=== PATIENT | female | born 1980 | race Hispanic/Latino ===

== ENCOUNTER 2016-12-17 21:47 | Emergency (ER) | payer BC ==
[2016-12-17 22:08] VITALS: BMI 25.8
--- NOTE | 2016-12-17 22:26 | ED PDOC ---
Arrival/HPI - General Chief Complaint: Abdominal Pain Time Seen by Provider: 12/17/16 22:12 Historian: Patient - History of Present Illness Narrative History of Present Illness (Text): 12/17/16 22:25 Letha Becker is a 36 year old female who presents to the Emergency department complaining of dizziness. Patient states tonight she began experiencing dizziness with head movement, described as room-spinning, and associated nausea. Patient states she has experienced similar symptoms in the past. Patient denies any headache, vision changes, focal neurological deficits, fever , chills, chest pain, shortness of breath, vomiting, diarrhea, urinary symptoms , back pain, or any other complaints. Time/Duration: Other (today) Symptom Onset: Gradual Symptom Course: Unchanged Activities at Onset: Rest, Light Context: Home Past Medical History - Provider Review Nursing Documentation Reviewed: Yes - Psychiatric Hx Substance Use: No - Anesthesia Hx Anesthesia: No Hx Anesthesia Reactions: No Family/Social History - Physician Review Nursing Documentation Reviewed: Yes Family/Social History: No Known Family HX Smoking Status: Never Smoked Hx Alcohol Use: No Hx Substance Use: No Allergies/Home Meds Allergies/Adverse Reactions: Allergies No Known Allergies Allergy (Verified 12/17/16 22:08) Review of Systems - Physician Review All systems were reviewed & negative as marked: Yes - Review of Systems Constitutional: Normal. absent: Fevers Eyes: Normal ENT: Normal Respiratory: Normal. absent: SOB, Cough Cardiovascular: Normal. absent: Chest Pain Gastrointestinal: Nausea. absent: Abdominal Pain, Diarrhea, Vomiting Genitourinary Female: Normal. absent: Dysuria, Frequency, Hematuria, Urine Output Changes Musculoskeletal: Normal. absent: Back Pain, Neck Pain Skin: Normal. absent: Rash Neurological: Dizziness. absent: Headache Endocrine: Normal Hemo/Lymphatic: Normal Psychiatric: Normal Physical Exam Vital Signs Reviewed: Yes Vital Signs Temp Pulse Resp BP Pulse Ox 12/18/16 02:09 97.8 F 60 16 109/55 L 100 12/18/16 00:10 62 16 100/58 L 100 12/17/16 22:13 97.9 F 62 16 101/69 99 Temperature: Afebrile Blood Pressure: Normal Pulse: Regular Respiratory Rate: Normal Appearance: Positive for: Well-Appearing, Non-Toxic, Comfortable Pain Distress: None Mental Status: Positive for: Alert and Oriented X 3 - Systems Exam Head: Present: Atraumatic, Normocephalic Pupils: Present: PERRL Extroacular Muscles: Present: EOMI Conjunctiva: Present: Normal Ears: Present: Normal, NORMAL TM, Normal Canal. No: Erythema, TM Bulging, Fluid , TM Perf Mouth: Present: Moist Mucous Membranes Pharnyx: Present: Normal. No: ERYTHEMA, EXUDATE, TONSILS ENLARGED, Peritonsilar Swelling, Uvular Deviation, Muffled/Hoarse Voice, Strider, Soft Palate/Uvular Edema Nose (External): Present: Atraumatic Nose (Internal): Present: Normal Inspection Neck: Present: Normal Range of Motion. No: Meningeal Signs, MIDLINE TENDERNESS , Paraspinal Tenderness Respiratory/Chest: Present: Clear to Auscultation, Good Air Exchange. No: Respiratory Distress, Accessory Muscle Use Cardiovascular: Present: Regular Rate and Rhythm, Normal S1, S2. No: Murmurs Abdomen: Present: Normal Bowel Sounds. No: Tenderness, Distention, Peritoneal Signs Back: Present: Normal Inspection. No: CVA Tenderness, Midline Tenderness, Paraspinal Tenderness Upper Extremity: Present: Normal Inspection. No: Cyanosis, Edema Lower Extremity: Present: Normal Inspection. No: Edema Neurological: Present: GCS=15, CN II-XII Intact, Speech Normal, Motor Func Grossly Intact, Normal Sensory Function, Normal Cerebellar Funct Skin: Present: Warm, Dry, Normal Color. No: Rashes Psychiatric: Present: Alert, Oriented x 3, Normal Insight, Normal Concentration Medical Decision Making ED Course and Treatment: 12/17/16 22:25 Impression: 36 year old female complaining of dizziness and nausea. Plan: -- CT Head w/o contrast -- EKG -- Labs, cardiac enzymes -- IV fluids -- Zofran -- Reassess and disposition Progress Notes: 12/18/16 00:25 Reviewed EKG, NSR at [address]pm[address] RBBB. Non-specific ST/T wave changes. 12/18/16 02:26 Reviewed radiology, CT Head shows: 1. No acute intracranial abnormality. 2. Incidental/non-acute findings are described above. 12/18/16 03:30 On re-evaluation, patient with relief of symptoms and is in no acute distress. I have discussed the results and plan with the patient, who expresses understanding. Patient in agreement with plan to discharged home. Patient is stable for discharge. Patient was instructed to follow up with physician/clinic in 1-2 days or return if symptoms worsen or new concerning symptoms arise. - Lab Interpretations Lab Results: 12/17/16 22:50 12/17/16 22:50 Lab Results 12/17/16 22:50: WBC 4.8, RBC 4.58, Hgb 11.5 L, Hct 34.6 L, MCV 75.5 L, MCH 25.1 , MCHC 33.2, RDW 14.3, Plt Count 220, MPV 9.4 12/17/16 22:50: Sodium 138, Potassium 3.4 L, Chloride 101, Carbon Dioxide 28, Anion Gap 12, BUN 26 H, Creatinine 0.8, Est GFR ( Amer) > 60, Est GFR ( Non-Af Amer) > 60, Random Glucose 88, Calcium 9.9, Total Bilirubin 1.0, AST 21, ALT 30, Alkaline Phosphatase 58, Lactate Dehydrogenase 321 L, Total Creatine Kinase 77, Troponin I < 0.01, Total Protein 7.5, Albumin 4.4, Globulin 3.2, Albumin/Globulin Ratio 1.4 I have reviewed the lab results: Yes - RAD Interpretation Narrative RAD Interpretations (Text): CT Head shows: Brain: No intracranial hemorrhage. No mass. No definite edema. Ventricles: No hydrocephalus. Bones/joints: No acute fracture. Soft tissues: Unremarkable. Sinuses: Scattered minimal mucosal thickening. Mastoid air cells: No mastoid effusion. Orbits: Unremarkable as visualized. IMPRESSION: 1. No acute intracranial abnormality. 2. Incidental/non-acute findings are described above. Radiology Orders: 12/17/16 22:28 HEAD W/O CONTRAST [CT] Stat Chair Trimmer: Radiologist - EKG Interpretation Interpreted by ED Physician: Yes Type: 12 lead EKG - Medication Orders Current Medication Orders: Discontinued Medications Sodium Chloride (Sodium Chloride 0.9%) 1,000 mls @ 999 mls/hr IV .Q1H1M STA Stop: 12/17/16 23:33 Last Admin: 12/17/16 23:06 Dose: 999 mls/hr Meclizine HCl (Antivert) 25 mg PO STAT STA Stop: 12/18/16 01:12 Ondansetron HCl (Zofran Inj) 4 mg IVP ONCE ONE Stop: 12/17/16 22:34 Last Admin: 12/17/16 23:06 Dose: 4 mg Potassium Chloride (K-Dur 20 Meq Er Tab) 20 meq PO STAT STA Stop: 12/18/16 03:07 - Scribe Statement The provider has reviewed the documentation as recorded by the Leahibcorin Romo All medical record entries made by the Leahibcorin were at my direction and personally dictated by me. I have reviewed the chart and agree that the record accurately reflects my personal performance of the history, physical exam, medical decision making, and the department course for this patient. I have also personally directed, reviewed, and agree with the discharge instructions and disposition. Disposition/Present on Arrival - Present on Arrival Any Indicators Present on Arrival: No History of DVT/PE: No History of Uncontrolled Diabetes: No Urinary Catheter: No History of Decub. Ulcer: No History Surgical Site Infection Following: None - Disposition Have Diagnosis and Disposition been Completed?: Yes Diagnosis: Labyrinthitis Disposition: HOME/ ROUTINE Disposition Time: 03:25 Patient Plan: Discharge Patient Problems: Current Active Problems Problem Status Onset Labyrinthitis Acute Condition: GOOD Discharge Instructions (ExitCare): Labyrinthitis (ED) Additional Instructions: Take meds as prescribed/follow up with your doctor this week/any recurrent worsening symptoms return to the emergency room Prescriptions: Meclizine [Meclizine*] 25 mg PO Q6 PRN #20 tab PRN Reason: Dizziness Ondansetron [Zofran Odt] 4 mg PO Q6 PRN #9 odt PRN Reason: Nausea/Vomiting Referrals: PCP,NO [Primary Care Provider] - Follow up with primary
[2016-12-17 22:28] VITALS: RESP 16
[2016-12-17] MEDS ORDERED: Sodium Chloride 0.9% 1,000 ML IV STA (22:33)
[2016-12-17 23:04] LABS: HEMATOCRIT 34.6 % (36.0-48.0); MEAN CELL VOLUME 75.5 fL (80.0-105.0); MEAN CORPUSCULAR HEMOGLOBIN 25.1 pg (25.0-35.0); MEAN CORPUSCULAR HGB CONC 33.2 g/dl (31.0-37.0); MEAN PLATELET VOLUME 9.4 fl (7.0-11.0); RED CELL DISTRIBUTION WIDTH 14.3 % (11.5-14.5); WHITE BLOOD COUNT 4.8 10^3/ul (4.5-11.0)
[2016-12-17 23:16] LABS: ALB/GLOB RATIO 1.4 (1.1-1.8); ALKALINE PHOSPHATASE 58 U/L (38-133); ALT/SGPT 30 U/L (7-56); AST/SGOT 21 U/L (15-39); BLOOD UREA NITROGEN 26 mg/dL (7-21); CALCIUM 9.9 mg/dL (8.4-10.5); CARBON DIOXIDE 28 mmol/L (21-33); CHLORIDE 101 mmol/L (98-107); GFR AFRICAN-AMERICAN > 60; GLUCOSE,RANDOM 88 mg/dL (70-110); POTASSIUM 3.4 mmol/L (3.6-5.0); SODIUM 138 mmol/L (132-148); TOTAL PROTEIN 7.5 g/dL (5.8-8.3)
[2016-12-17 23:28] LABS: TROPONIN I < 0.01 ng/mL
[2016-12-18 00:11] VITALS: O2SAT 100
[2016-12-18 02:10] VITALS: BP 109/55; PULSE 60; TEMP 97.8
--- NOTE | 2016-12-18 02:11 | CT ---
EXAM: CT Head Without Intravenous Contrast CLINICAL HISTORY: 36 years old, female; Pain; Headache; Additional info: Dizzy TECHNIQUE: Axial computed tomography images of the head/brain without intravenous contrast. This CT exam was performed using one or more of the following dose reduction techniques: automated exposure control, adjustment of the mA and/or kV according to patient size, and/or use of iterative reconstruction technique. COMPARISON: No relevant prior studies available. FINDINGS: Brain: No intracranial hemorrhage. No mass. No definite edema. Ventricles: No hydrocephalus. Bones/joints: No acute fracture. Soft tissues: Unremarkable. Sinuses: Scattered minimal mucosal thickening. Mastoid air cells: No mastoid effusion. Orbits: Unremarkable as visualized. IMPRESSION: 1. No acute intracranial abnormality. 2. Incidental/non-acute findings are described above.
[2016-12-18] MEDS ORDERED: Potassium Chloride 20 mEq ER Tab PO STA (03:06)
--- NOTE | 2016-12-18 10:37 | CARD ---
APPROVED REPORT EKG Measurement Heart [id number] <Conclusion> Normal sinus rhythm Right bundle branch block
== END 2016-12-18 03:36 | disposition home or self-care (01) ==
LOC: ED 21:47
DX: H83.09 Labyrinthitis, unspecified ear (principal)
CPT/HCPCS: 70450; 80053; 82550; 83615; 84484; 85027; 93005; 96374; 99284; J2405; J7040

== ENCOUNTER 2018-08-09 17:24 | Emergency (ER) | payer SELFPAY ==
[2018-08-09 17:24] VITALS: BMI 25.8
== END 2018-08-09 17:52 | disposition left against medical advice (07) ==
LOC: ED 17:24
DX: Z02.89 Encounter for other administrative examinations (principal); R10.9 Unspecified abdominal pain